=== PATIENT | female | born 1960 | race Caucasian/White ===

== ENCOUNTER 2021-02-21 06:37 | Day surgery (SDC) | payer OTHER ==
[2021-02-17 16:37] VITALS: BMI 33.8
[2021-02-21] MEDS ORDERED: ceFAZolin 2 GM/DEX 5% 100 ML BAG ONE (07:09)
[2021-02-21] MEDS ORDERED: Midazolam HCl 2 mg/2 ml Vial ONE (08:29)
[2021-02-21] MEDS ORDERED: Fentanyl 250 MCG/5 ML VIAL ONE (08:29)
[2021-02-21] MEDS ORDERED: Ketorolac Tromethamine 30 MG/ML VIAL ONE (08:34)
[2021-02-21] MEDS ORDERED: Ondansetron PF 4 MG/2 ML Vial ONE (08:34)
[2021-02-21] MEDS ORDERED: Rocuronium Bromide 10 MG/ML (10ML VIAL) ONE (08:34)
[2021-02-21] MEDS ORDERED: PHENYLEPHRINE-NS 100 MCG/ML 10 ML SYRINGE ONE (08:34)
[2021-02-21] MEDS ORDERED: Lidocaine 1% PF 5 ML VIAL ONE (08:34)
[2021-02-21] MEDS ORDERED: PROPOFOL 200 MG/20 ML VIAL ONE (08:34)
[2021-02-21] MEDS ORDERED: Glycopyrrolate 0.2 MG/ML 5 ML SYRINGE ONE (08:34)
[2021-02-21] MEDS ORDERED: Dexamethasone 20 MG/5 ML VIAL ONE (08:34)
[2021-02-21] MEDS ORDERED: HYDROmorphone 0.5 MG/0.5 ML SYRINGE ONE ×2 (10:05→10:18)
[2021-02-21] MEDS ORDERED: Fentanyl 100 MCG/2 ML VIAL ONE ×3 (10:05→10:51)
[2021-02-21] MEDS ORDERED: Promethazine HCl 25 MG/ML VIAL ONE (12:55)
== END 2021-02-21 13:53 | disposition home or self-care (01) ==
LOC: SDC 06:37
PROVIDERS: ATTEND Neurological Surgery
PROC: 0ST20ZZ Resection of Lumbar Vertebral Disc, Open Approach (ICD-10-PCS; principal; 2021-02-21)
DX: M54.16 Radiculopathy, lumbar region (principal); I10 Essential (primary) hypertension; E78.5 Hyperlipidemia, unspecified; Z79.1 Long term (current) use of non-steroidal anti-inflammatories (NSAID); Z79.899 Other long term (current) drug therapy
CPT/HCPCS: 76000; J1100; J1170; J1885; J2250; J2405; J2550; J2704; J3010; J3370